=== PATIENT | female | born 1990 | race Caucasian/White ===

== ENCOUNTER 2020-12-27 14:22 | Emergency (ER) | payer MEDICAID, SELFPAY ==
--- NOTE | ~2020-12-27 | US_ITS ---
EXAMINATION: US PELVIC, COMPLETE CLINICAL INFORMATION: Pelvic pain. Missed.. History of ectopic COMPARISON: CT 11/17/2010 TECHNIQUE: Transabdominal and transvaginal imaging was performed. FINDINGS: The uterus is anteverted of normal size and echogenicity measuring 12.5 x 3.9 x 5.1 cm. A regular homogeneous endometrium is identified measuring 0.8-0.9 cm. Nabothian cysts are seen at the cervix. Both ovaries are of normal size and echogenicity. The right measures 2.4 x 1.8 x 1.8 cm for a volume of 4 mL. The left measures 2.4 x 2.2 x 1.7 cm for a volume of 5 mL. There is no pelvic free fluid. US/US pelvic complete IMPRESSION: Unremarkable ultrasound of the female pelvis. Neither an intrauterine or extrauterine is identified. This exam alone does not exclude the possibility of an ectopic and close clinical follow-up is recommended.
--- NOTE | ~2020-12-27 | US_ITS ---
EXAMINATION: US PELVIC, COMPLETE CLINICAL INFORMATION: Pelvic pain. Missed.. History of ectopic COMPARISON: CT 11/17/2010 TECHNIQUE: Transabdominal and transvaginal imaging was performed. FINDINGS: The uterus is anteverted of normal size and echogenicity measuring 12.5 x 3.9 x 5.1 cm. A regular homogeneous endometrium is identified measuring 0.8-0.9 cm. Nabothian cysts are seen at the cervix. Both ovaries are of normal size and echogenicity. The right measures 2.4 x 1.8 x 1.8 cm for a volume of 4 mL. The left measures 2.4 x 2.2 x 1.7 cm for a volume of 5 mL. There is no pelvic free fluid. US/US transvaginal IMPRESSION: Unremarkable ultrasound of the female pelvis. Neither an intrauterine or extrauterine is identified. This exam alone does not exclude the possibility of an ectopic and close clinical follow-up is recommended.
[2020-12-27 14:55] VITALS: BP 137/86; PULSE 82; RESP 18; TEMP 36.6; O2SAT 100; BMI 37.1
[2020-12-27 16:56] LABS: Glucose Urine UA NEG (NEG); Leukocyte Esterase Urine NEG (NEG); Nitrite Urine NEG (NEG); PH 6.5 (5.0-8.0); Urine Blood NEG (NEG); Urine Ketones NEG (NEG); Urine Protein NEG (NEG-TRACE)
[2020-12-27 16:58] LABS: Appearance Urine CLEAR; Color Urine YELLOW
[2020-12-27 17:12] LABS: UPreg QC Valid YES; Urine Pregnancy NEGATIVE (NEGATIVE)
--- NOTE | 2020-12-27 17:24 | ED_ITS ---
HPI - Abdominal Pain General Chief Complaint: Abdominal Pain Stated Complaint: PELVIC PAIN Time Seen by Provider: 12/27/20 16:19 Source: patient Mode of arrival: ambulatory History of Present Illness HPI narrative: 30-year-old female with a history of an ectopic presenting to the ED complaining of lower abdominal/pelvic cramping/pressure x3 days. Admits had IUD removed in August and has been trying to get . Reports last menses was November 18, is 8 days late. Reports associated nausea and vomiting. Denies diarrhea/constipation, fever, vaginal bleeding, vaginal discharge, dysuria/hematuria. Denies symptoms feeling similar to prior ectopic MD elicited complaint: abdominal pain Related Data Allergies Allergy/AdvReac Type Severity Reaction Status Date / Time bee pollen [BEE STINGS] Allergy Severe SWELLING Unverified 07/25/20 15:57 Review of Systems Review of Systems Constitutional: No Weight loss, No Fever, No Chills Gastrointestinal: + Nausea, No Vomiting, No Diarrhea, No Constipation, + Abdominal pain Genitourinary: No irregular bleeding, No Dysuria, No Urinary Frequency, No Hematuria, No Flank Pain Musculoskeletal: No joint pain, No Myalgias, No Joint Swelling Skin: No Skin Lesions, No rash Yes all other systems are reviewed and are negative Physical Exam Vital Signs: Vital Signs: Last Vital Signs Temp 97.9 F 12/27/20 14:55 Pulse 82 12/27/20 14:55 Resp 18 12/27/20 14:55 BP 137/86 12/27/20 14:55 Pulse Ox 100 12/27/20 14:55 Body Mass Index 37.1 Const: General: cooperative, healthy appearing, comfortable and no acute distress Orientation/consciousness: patient oriented x3 Limitations: no limitations HENMT: Head: Yes normal to inspection Ears: hearing grossly normal bilaterally General nose exam: Normal external nose present Face and sinus: Yes normal facial exam Eyes: General: appearance normal, both eyes and all related structures EOM: EOMs intact bilaterally Neck: Neck: Yes normal visual inspection and Yes no lymphadenopathy Resp: Effort & Inspection: normal respiratory effort Cardio: Rate: regular rate GI: Inspection: Yes normal to inspection Palpation (GI): Soft to palpation, Tenderness to palpation present (GI) suprapubicly, no guarding and not rigid : General: Yes no CVA tenderness OB/external & speculum: Deferred OB/ex ternal & speculum exam Back/Spine/Pelvis: Back: no CVA tenderness Skin: Rashes: no rashes Wounds: no wounds Neuro: General: patient oriented x3 Gait exam (Neuro): Normal gait present Extrem: General: Yes normal to inspection Course Course Course Narrative: -UA negative, urine negative -no leukocytosis, labs otherwise unremarkable. Hematologic beta quant 40 US transvaginal IMPRESSION: Unremarkable ultrasound of the female pelvis. Neither an intrauterine or extrauterine is identified. This exam alone does not exclude the possibility of an ectopic and close clinical follow-up is recommended. > results discussed with patient including possibility that this could be normal IUP or ectopic . She is to follow-up in 48 hours for repeat beta quant. Discussed if symptoms persist or worsen, she develops any vaginal bleeding or discharge to return to the ED immediately. She needs to establish care with an OBGYN. She should have repeat ultrasound in 1 week MDM - Abdominal Pain MDM Narrative Medical decision making narrative: 30-year-old female with a history of an ectopic presenting to the ED complaining of lower abdominal/pelvic cramping/pressure x3 days. On exam VSS, NAD/well appearing, abdomen soft with suprapubic tenderness to palpation, no rebound or guarding, no CVAT. Concern for /ectopic vs ovarian pathology/torsion vs ?UTI. Lower concern for appendicitis/diverticulitis or renal stone Plan: Labs, UA, ultrasound, re-evaluate Lab Data Result diagrams: 12/27/20 17:54 12/27/20 17:54 Labs: Lab Results 12/27/20 12/27/20 12/27/20 Range/Units 16:37 17:54 17:54 WBC 10.5 (4.8-10.8) X10*3/uL RBC 4.88 (4.20-5.50) X10*6/uL Hgb 13.6 (12.0-16.0) g/dl Hct 42.3 (37-47) % MCV 86.7 (80-98) fL MCH 27.9 (27.0-33.0) pg MCHC 32.2 (31.0-35.0) g/dl RDW 13.0 (11.0-16.0) % Plt Count 411 H (160-400) X10*3/uL MPV 10.3 (9.4-12.3) fL Immature Gran % (Auto) 0.3 (0.0-0.4) % Neut % (Auto) 61.3 (45-73) % Lymph % (Auto) 28.9 (20-40) % [place] % (Auto) 6.3 (2-11) % Eos % (Auto) 2.5 (0-4) % Baso % (Auto) 0.7 (0-2) % Lymph # (Auto) 3.0 (1.2-4.9) X10*3/uL [place] # (Auto) 0.7 (0.1-1.2) X10*3/uL Eos # (Auto) 0.3 (0.0-0.4) X10*3/uL Baso # (Auto) 0.1 (0.0-0.2) X10*3/uL Abs Immat Gran (auto) 0.03 (0.00-0.03) X10*3/uL Absolute Neuts (auto) 6.4 (2.0-8.3) X10*3/uL Absolute Nucleated RBC 0.000 (0.0-0.012) X10*3/uL Nucleated RBC % (auto) 0.0 (0.0-0.2) /100WBC Hold Blue Top Sodium 139 (135-145) mmol/L Potassium 3.5 (3.3-5.1) mmol/L Chloride 105 (96-108) mmol/L Carbon Dioxide 24 (22-29) mmol/L Anion Gap 14 (12-20) BUN 8 L (9-16) mg/dL Creatinine 0.68 (0.5-1.4) mg/dL Estim Creat Clear Calc 94.4 Estimated GFR > 60 Random Glucose 87 (60-115) mg/dL Calcium 9.2 (8.4-10.2) mg/dL Total Bilirubin 1.3 H (0.0-1.0) mg/dL Direct Bilirubin 0.4 (0.0-0.5) mg/dL AST 18 (5-31) U/L ALT 13 (0-31) U/L Alkaline Phosphatase 67 (39-117) U/L Total Protein 7.2 (6.5-8.0) g/dL Albumin 4.2 (3.5-5.0) g/dL Lipase 10 (8-78) U/L Beta HCG, Quant 40 mIU/mL Urine Color YELLOW Urine Appearance CLEAR Urine pH 6.5 (5.0-8.0) Ur Specific [place] 1.020 (1.005-1.025) Urine Protein NEG (NEG-TRACE) MG/DL Urine Glucose (UA) NEG (NEG) MG/DL Urine Ketones NEG (NEG) MG/DL Urine Blood NEG (NEG) Urine Nitrite NEG (NEG) Ur Leukocyte Esterase NEG (NEG) Urine Test NEGATIVE (NEGATIVE) 12/27/20 Range/Units 17:54 WBC (4.8-10.8) X10*3/uL RBC (4.20-5.50) X10*6/uL Hgb (12.0-16.0) g/dl Hct (37-47) % MCV (80-98) fL MCH (27.0-33.0) pg MCHC (31.0-35.0) g/dl RDW (11.0-16.0) % Plt Count (160-400) X10*3/uL MPV (9.4-12.3) fL Immature Gran % (Auto) (0.0-0.4) % Neut % (Auto) (45-73) % Lymph % (Auto) (20-40) % [place] % (Auto) (2-11) % Eos % (Auto) (0-4) % Baso % (Auto) (0-2) % Lymph # (Auto) (1.2-4.9) X10*3/uL [place] # (Auto) (0.1-1.2) X10*3/uL Eos # (Auto) (0.0-0.4) X10*3/uL Baso # (Auto) (0.0-0.2) X10*3/uL Abs Immat Gran (auto) (0.00-0.03) X10*3/uL Absolute Neuts (auto) (2.0-8.3) X10*3/uL Absolute Nucleated RBC (0.0-0.012) X10*3/uL Nucleated RBC % (auto) (0.0-0.2) /100WBC Hold Blue Top SEE NOTE Sodium (135-145) mmol/L Potassium (3.3-5.1) mmol/L Chloride (96-108) mmol/L Carbon Dioxide (22-29) mmol/L Anion Gap (12-20) BUN (9-16) mg/dL Creatinine (0.5-1.4) mg/dL Estim Creat Clear Calc Estimated GFR Random Glucose (60-115) mg/dL Calcium (8.4-10.2) mg/dL Total Bilirubin (0.0-1.0) mg/dL Direct Bilirubin (0.0-0.5) mg/dL AST (5-31) U/L ALT (0-31) U/L Alkaline Phosphatase (39-117) U/L Total Protein (6.5-8.0) g/dL Albumin (3.5-5.0) g/dL Lipase (8-78) U/L Beta HCG, Quant mIU/mL Urine Color Urine Appearance Urine pH (5.0-8.0) Ur Specific [place] (1.005-1.025) Urine Protein (NEG-TRACE) MG/DL Urine Glucose (UA) (NEG) MG/DL Urine Ketones (NEG) MG/DL Urine Blood (NEG) Urine Nitrite (NEG) Ur Leukocyte Esterase (NEG) Urine Test (NEGATIVE) Discharge Plan Discharge Clinical Impression: Qualifiers: Weeks of gestation: less than 8 weeks Qualified Code(s): Z3A.01 - Less than 8 weeks gestation of Patient Disposition: Home, Self-Care Instructions: Abdominal Pain in (ED) Additional Instructions: Your blood work showed that you are . Your ultrasound did not show an intrauterine or an ectopic , however it is too soon/early, it could be either. It is very important that you follow up in 48 hours to have repeat blood work done. You need to establish care with an OBGYN. you should start taking vitamins. IF AT ALL YOUR PAIN WORSENS, YOU DEVELOPED VAGINAL BLEEDING OR DISCHARGE, PERSISTENT NAUSEA/VOMITING RETURN TO THE ED IMMEDIATELY Referrals: Hattie Augustin MD [Physician] - 2 days [facility] Past Medical History Attestation statement: The following information was validated with the patient. Social History Social History Advance Directives: No Advance Directives Information Provided: Yes
[2020-12-27 18:09] LABS: MANUAL DIFF FLAG NO
[2020-12-27 18:15] LABS: Basophils Absolute Auto 0.1 X10*3/uL (0.0-0.2); Basophils Percent Auto 0.7 % (0-2); Eosinophils Absolute Auto 0.3 X10*3/uL (0.0-0.4); Eosinophils Percent Auto 2.5 % (0-4); Hematocrit 42.3 % (37-47); Hemoglobin 13.6 g/dl (12.0-16.0); Imm Gran Abs Auto 0.03 X10*3/uL (0.00-0.03); Imm Gran Pct Auto 0.3 % (0.0-0.4); Lymphocytes Percent Auto 28.9 % (20-40); Mean Corpuscular HGB Conc 32.2 g/dl (31.0-35.0); Mean Corpuscular Hemoglobin 27.9 pg (27.0-33.0); Mean Corpuscular Volume 86.7 fL (80-98); Mean Platelet Volume 10.3 fL (9.4-12.3); Monocytes Absolute Auto 0.7 X10*3/uL (0.1-1.2); Monocytes Percent Auto 6.3 % (2-11); Neutrophils Absolute Auto 6.4 X10*3/uL (2.0-8.3); Neutrophils Percent Auto 61.3 % (45-73); Platelet Count 411 X10*3/uL (160-400); Red Blood Count 4.88 X10*6/uL (4.20-5.50); White Blood Count 10.5 X10*3/uL (4.8-10.8)
[2020-12-27 18:36] LABS: Alanine Aminotransferase 13 U/L (0-31); Albumin Level 4.2 g/dL (3.5-5.0); Alkaline Phosphatase 67 U/L (39-117); Anion Gap 14 (12-20); Aspartate Amino Transferase 18 U/L (5-31); Bilirubin Direct 0.4 mg/dL (0.0-0.5); Bilirubin Total 1.3 mg/dL (0.0-1.0); Blood Urea Nitrogen 8 mg/dL (9-16); Calcium 9.2 mg/dL (8.4-10.2); Carbon Dioxide 24 mmol/L (22-29); Chloride 105 mmol/L (96-108); Creatinine Clr Calc Pharmacy 94.4; Estimated Glomerular Filt Rate > 60; Glucose Random 87 mg/dL (60-115); Lipase 10 U/L (8-78); Potassium 3.5 mmol/L (3.3-5.1); Sodium 139 mmol/L (135-145); Total Protein 7.2 g/dL (6.5-8.0)
[2020-12-27 18:41] LABS: HCG Quantitative 40 mIU/mL
[2020-12-27 19:24] VITALS: BP 144/100; PULSE 79; RESP 20; O2SAT 98
== END 2020-12-27 19:31 | disposition home or self-care (01) ==
PROVIDERS: Physician Assistant; Emergency Provider Internal Medicine
DX: O26.91 Pregnancy related conditions, unspecified, first trimester (principal); R10.2 Pelvic and perineal pain; Z3A.00 Weeks of gestation of pregnancy not specified
CPT/HCPCS: 36415; 76830; 76856; 80048; 80076; 81003; 81025; 83690; 84702; 85025; 99284

== ENCOUNTER 2020-12-31 16:14 | Outpatient (REF) | payer MEDICAID, SELFPAY ==
[2020-12-31 17:09] LABS: HCG Quantitative 103 mIU/mL
== END 2020-12-31 16:15 | disposition home or self-care (01) ==
LOC: HO.LAB 16:14
PROVIDERS: Visit Provider Obstetrics & Gynecology
DX: Z34.90 Encounter for supervision of normal pregnancy, unspecified, unspecified trimester (principal)
CPT/HCPCS: 36415; 84702

== ENCOUNTER 2021-01-01 09:59 | Outpatient (REF) | payer MEDICAID, SELFPAY ==
[2021-01-02 17:01] LABS: C. trachomatis RNA TMA NOT DETECTED (NOT DETECTED); N. gonorrhoeae RNA TMA NOT DETECTED (NOT DETECTED)
== END 2021-01-01 10:00 | disposition home or self-care (01) ==
LOC: HO.LAB 09:59
PROVIDERS: Visit Provider Obstetrics & Gynecology
DX: Z34.80 Encounter for supervision of other normal pregnancy, unspecified trimester (principal); Z3A.00 Weeks of gestation of pregnancy not specified; Z91.030 Bee allergy status; Z87.891 Personal history of nicotine dependence
CPT/HCPCS: 36415; 87491; 87591

== ENCOUNTER 2021-01-02 12:24 | Outpatient (REF) | payer SELFPAY ==
[2021-01-02 14:21] LABS: HCG Quantitative 131 mIU/mL
[2021-01-03 14:02] LABS: C. trachomatis RNA TMA NOT DETECTED (NOT DETECTED); N. gonorrhoeae RNA TMA NOT DETECTED (NOT DETECTED)
== END 2021-01-02 12:25 | disposition home or self-care (01) ==
LOC: HO.LAB 12:24
PROVIDERS: Visit Provider Obstetrics & Gynecology
DX: Z34.80 Encounter for supervision of other normal pregnancy, unspecified trimester (principal); Z3A.00 Weeks of gestation of pregnancy not specified; Z91.030 Bee allergy status
CPT/HCPCS: 36415; 84702; 86900; 86901; 87491; 87591; 99212

== ENCOUNTER 2021-01-04 10:01 | Outpatient (REF) | payer MEDICAID, SELFPAY ==
[2021-01-04 11:01] LABS: HCG Quantitative 122 mIU/mL
[2021-01-06 20:16] LABS: C. trachomatis RNA TMA NOT DETECTED (NOT DETECTED); N. gonorrhoeae RNA TMA NOT DETECTED (NOT DETECTED)
== END 2021-01-04 10:02 | disposition home or self-care (01) ==
LOC: HO.LAB 10:01
PROVIDERS: Visit Provider Obstetrics & Gynecology
DX: Z34.90 Encounter for supervision of normal pregnancy, unspecified, unspecified trimester (principal)
CPT/HCPCS: 36415; 84702; 87491; 87591

== ENCOUNTER 2021-01-06 06:26 | Outpatient (REF) | payer MEDICAID, SELFPAY ==
[2021-01-06 08:20] LABS: HCG Quantitative 120 mIU/mL
[2021-01-07 11:41] LABS: C. trachomatis RNA TMA NOT DETECTED (NOT DETECTED); N. gonorrhoeae RNA TMA NOT DETECTED (NOT DETECTED)
== END 2021-01-06 06:27 | disposition home or self-care (01) ==
LOC: HO.LAB 06:26
PROVIDERS: Visit Provider Obstetrics & Gynecology
DX: R89.1 Abnormal level of hormones in specimens from other organs, systems and tissues (principal)
CPT/HCPCS: 36415; 84702; 87491; 87591; 99212

== ENCOUNTER 2021-01-07 14:46 | Emergency (ER) | payer OTHER, SELFPAY ==
[2021-01-07 14:50] VITALS: BP 143/99; PULSE 102; RESP 16; TEMP 36.8; O2SAT 98; BMI 39.2
--- NOTE | 2021-01-07 15:16 | ED_ITS ---
HPI - General Chief complaint: Vaginal Bleeding Stated complaint: vag bleed Time Seen by Provider: 01/07/21 15:03 Source: patient Mode of arrival: ambulatory History of Present Illness HPI Narrative: 30-year-old female with a history of an ectopic presenting to the ED complaining of pinkish spotting x this morning with lower abdominal cramping. LMP 11/15/2020. Has been seeing Dr. Cm who has been monitoring her hCG, as her levels have been decreasing consistent with likely early SAB vs early ectopic or unlikely normal IUP. Denies hemorrhage or clots. Denies N/V, diarrhea/constipation, fever, vaginal discharge, dysuria/hematuria. Complaint: abdominal pain and vaginal bleeding Related Data Home Medications Medication Instructions Recorded Confirmed No Known Home Meds 01/01/21 01/01/21 Allergies Allergy/AdvReac Type Severity Reaction Status Date / Time bee pollen [BEE STINGS] Allergy Severe SWELLING Verified 01/06/21 14:52 Review of Systems Review of Systems: Constitutional: No Fever, No Chills, No Night Sweats, No Fatigue, No Malaise Gastrointestinal: No Nausea, No Vomiting, No Diarrhea, +Abdominal cramping Genitourinary: + irregular spotting, No Dysuria, No Urinary Frequency, No Hematuria, No Flank Pain Musculoskeletal: No joint pain, No Myalgias Skin: No Skin Lesions, No rash Yes all other systems are reviewed and are negative [facility] Past Medical History Attestation statement: The following information was validated with the patient. Medical History Ectopic Surgical History History of Social History Social History Alcohol intake: never Smoking Status: Former smoker Advance Directives: No Advance Directives Information Provided: No Sexual orientation: Straight/Heterosexual Gender identity: female Physical Exam Vital Signs: Vital Signs: Last Vital Signs Temp 98.2 F 01/07/21 14:50 Pulse 102 H 01/07/21 14:50 Resp 16 01/07/21 14:50 BP 143/99 H 01/07/21 14:50 Pulse Ox 98 01/07/21 14:50 Body Mass Index 39.2 Const: General: cooperative, healthy appearing, comfortable, no acute distress and well developed Orientation/consciousness: patient oriented x3 Limitations: no limitations HENMT: Head: Yes normal to inspection Ears: hearing grossly normal bilaterally General nose exam: Normal external nose present Face and sinus: Yes normal facial exam Eyes: General: appearance normal, both eyes and all related structures EOM: EOMs intact bilaterally Neck: Neck: Yes normal visual inspection and Yes no meningeal signs Resp: Effort & Inspection: normal respiratory effort Cardio: Rate: regular rate GI: Inspection: Yes normal to inspection Palpation (GI): Soft to palpation, Tenderness to palpation present (GI) suprapubicly, no guarding and not rigid : Other: Thin yellowish vaginal discharge noted on speculum exam. No adnexal or CMT tenderness. No active bleeding or hemorrhage. General: Yes no CVA tenderness Speculum Exam - Vagina: abnormal vaginal discharge yellow Bimanual exam- vagina & uterus: normal bimanual exam and no cervical motion tenderness Bimanual Exam- Adnexa, other: normal adnexae, no masses and no tenderness Back/Spine/Pelvis: Back: no CVA tenderness Skin: Rashes: no rashes Wounds: no wounds Neuro: General: patient oriented x3 and no meningeal signs Gait exam (Neuro): Normal gait present Extrem: General: Yes normal to inspection Course Course Course Narrative: -STI testing sent during pelvic exam due to noted vaginal discharge > of note negative CT/NG testing documented from yesterday. Will hold on prophylactic treatment in the ED today until cultures result -mild leukocytosis 11.0 -beta quant 127. UA negative. These results were discussed with patient. She has follow-up with Dr. Toi ERNANDEZ tomorrow morning for repeat beta quant in the a.m. and office visit at 3:00 p.m. Discussed importance of keeping this appointment. Worrisome signs and symptoms including continued or worsening of pain, bright red bleeding, clots, fever to return to the ED immediately. She verbalized understanding feel safe for discharge home MDM - OB/Uterine Contractions MDM Narrative Medical decision making narrative: 30-year-old female with a history of an ectopic presenting to the ED complaining of pinkish spotting x this morning with lower abdominal cramping. On exam mildly tachycardic, NAD/nontoxic, abdomen soft with mild suprapubic tenderness to palpation, no rebound or guarding. On pelvic exam yellowish vaginal discharge noted. No CMT or adnexal tenderness. No active hemorrhaging. Concern for early spontaneous vs ectopic or IUP Plan: Labs, UA Case discussed with Dr. Cedeno who is in agreement with plan. Utility of a pelvic ultrasound not deemed useful at this time due to low beta quant. No active hemorrhage appreciated on speculum exam. Will have patient follow-up in for repeat beta-hCG tomorrow as already scheduled Medical Records Attestation: I reviewed the patient's medical records. Lab Data Attestation: I reviewed the patient's lab results. Result diagrams: 01/07/21 15:25 01/07/21 15:25 Labs: Lab Results 01/07/21 01/07/21 01/07/21 Range/Units 15:25 15:25 15:25 WBC 11.0 H (4.8-10.8) X10*3/uL RBC 4.93 (4.20-5.50) X10*6/uL Hgb 13.7 (12.0-16.0) g/dl Hct 43.5 (37-47) % MCV 88.2 (80-98) fL MCH 27.8 (27.0-33.0) pg MCHC 31.5 (31.0-35.0) g/dl RDW 13.3 (11.0-16.0) % Plt Count 384 (160-400) X10*3/uL MPV 9.7 (9.4-12.3) fL Immature Gran % (Auto) 0.3 (0.0-0.4) % Neut % (Auto) 57.5 (45-73) % Lymph % (Auto) 32.8 (20-40) % [place] % (Auto) 6.0 (2-11) % Eos % (Auto) 2.7 (0-4) % Baso % (Auto) 0.7 (0-2) % Lymph # (Auto) 3.6 (1.2-4.9) X10*3/uL [place] # (Auto) 0.7 (0.1-1.2) X10*3/uL Eos # (Auto) 0.3 (0.0-0.4) X10*3/uL Baso # (Auto) 0.1 (0.0-0.2) X10*3/uL Abs Immat Gran (auto) 0.03 (0.00-0.03) X10*3/uL Absolute Neuts (auto) 6.3 (2.0-8.3) X10*3/uL Absolute Nucleated RBC 0.000 (0.0-0.012) X10*3/uL Nucleated RBC % (auto) 0.0 (0.0-0.2) /100WBC Hold Blue Top SEE NOTE Sodium 137 (135-145) mmol/L Potassium 4.4 D (3.3-5.1) mmol/L Chloride 105 (96-108) mmol/L Carbon Dioxide 25 (22-29) mmol/L Anion Gap 11 L (12-20) BUN 13 D (9-16) mg/dL Creatinine 0.75 (0.5-1.4) mg/dL Estim Creat Clear Calc 88.4 Estimated GFR > 60 Random Glucose 81 (60-115) mg/dL Calcium 9.0 (8.4-10.2) mg/dL Beta HCG, Quant 127 mIU/mL Urine Color Urine Appearance Urine pH (5.0-8.0) Ur Specific [place] (1.005-1.025) Urine Protein (NEG-TRACE) MG/DL Urine Glucose (UA) (NEG) MG/DL Urine Ketones (NEG) MG/DL Urine Blood (NEG) Urine Nitrite (NEG) Ur Leukocyte Esterase (NEG) 01/07/21 Range/Units 16:03 WBC (4.8-10.8) X10*3/uL RBC (4.20-5.50) X10*6/uL Hgb (12.0-16.0) g/dl Hct (37-47) % MCV (80-98) fL MCH (27.0-33.0) pg MCHC (31.0-35.0) g/dl RDW (11.0-16.0) % Plt Count (160-400) X10*3/uL MPV (9.4-12.3) fL Immature Gran % (Auto) (0.0-0.4) % Neut % (Auto) (45-73) % Lymph % (Auto) (20-40) % [place] % (Auto) (2-11) % Eos % (Auto) (0-4) % Baso % (Auto) (0-2) % Lymph # (Auto) (1.2-4.9) X10*3/uL [place] # (Auto) (0.1-1.2) X10*3/uL Eos # (Auto) (0.0-0.4) X10*3/uL Baso # (Auto) (0.0-0.2) X10*3/uL Abs Immat Gran (auto) (0.00-0.03) X10*3/uL Absolute Neuts (auto) (2.0-8.3) X10*3/uL Absolute Nucleated RBC (0.0-0.012) X10*3/uL Nucleated RBC % (auto) (0.0-0.2) /100WBC Hold Blue Top Sodium (135-145) mmol/L Potassium (3.3-5.1) mmol/L Chloride (96-108) mmol/L Carbon Dioxide (22-29) mmol/L Anion Gap (12-20) BUN (9-16) mg/dL Creatinine (0.5-1.4) mg/dL Estim Creat Clear Calc Estimated GFR Random Glucose (60-115) mg/dL Calcium (8.4-10.2) mg/dL Beta HCG, Quant mIU/mL Urine Color YELLOW Urine Appearance CLEAR Urine pH 6.5 (5.0-8.0) Ur Specific [place] 1.025 (1.005-1.025) Urine Protein NEG (NEG-TRACE) MG/DL Urine Glucose (UA) NEG (NEG) MG/DL Urine Ketones NEG (NEG) MG/DL Urine Blood NEG (NEG) Urine Nitrite NEG (NEG) Ur Leukocyte Esterase NEG (NEG) Discharge Plan Discharge Clinical Impression: Early stage of Patient Disposition: Home, Self-Care Instructions: Early Labor Signs (ED) Additional Instructions: Follow-up tomorrow for repeat blood work and for your OBGYN appointment as already scheduled If you develop constant worsening abdominal pain, persistent or worsening vaginal bleeding/discharge, lightheadedness/dizziness, or fever return to the ED immediately. Prescriptions: No Action No Known Home Meds RF: 0 Referrals: Saurabh Cm MD [Physician] - 1 day
[2021-01-07 15:29] LABS: MANUAL DIFF FLAG NO
[2021-01-07 15:30] LABS: Basophils Absolute Auto 0.1 X10*3/uL (0.0-0.2); Basophils Percent Auto 0.7 % (0-2); Eosinophils Absolute Auto 0.3 X10*3/uL (0.0-0.4); Eosinophils Percent Auto 2.7 % (0-4); Hematocrit 43.5 % (37-47); Hemoglobin 13.7 g/dl (12.0-16.0); Imm Gran Abs Auto 0.03 X10*3/uL (0.00-0.03); Imm Gran Pct Auto 0.3 % (0.0-0.4); Lymphocytes Absolute Auto 3.6 X10*3/uL (1.2-4.9); Lymphocytes Percent Auto 32.8 % (20-40); Mean Corpuscular HGB Conc 31.5 g/dl (31.0-35.0); Mean Corpuscular Hemoglobin 27.8 pg (27.0-33.0); Mean Corpuscular Volume 88.2 fL (80-98); Mean Platelet Volume 9.7 fL (9.4-12.3); Monocytes Absolute Auto 0.7 X10*3/uL (0.1-1.2); Neutrophils Absolute Auto 6.3 X10*3/uL (2.0-8.3); Neutrophils Percent Auto 57.5 % (45-73); Platelet Count 384 X10*3/uL (160-400); Red Blood Count 4.93 X10*6/uL (4.20-5.50); Red Cell Distribution Width 13.3 % (11.0-16.0)
[2021-01-07 16:07] LABS: HCG Quantitative 127 mIU/mL
[2021-01-07 16:08] LABS: Anion Gap 11 (12-20); Blood Urea Nitrogen 13 mg/dL (9-16); Carbon Dioxide 25 mmol/L (22-29); Chloride 105 mmol/L (96-108); Creatinine Clr Calc Pharmacy 88.4; Estimated Glomerular Filt Rate > 60; Glucose Random 81 mg/dL (60-115); Potassium 4.4 mmol/L (3.3-5.1); Sodium 137 mmol/L (135-145)
[2021-01-07 16:15] LABS: Glucose Urine UA NEG (NEG); Leukocyte Esterase Urine NEG (NEG); Nitrite Urine NEG (NEG); PH 6.5 (5.0-8.0); Specific Gravity - Urine 1.025 (1.005-1.025); Urine Blood NEG (NEG); Urine Ketones NEG (NEG); Urine Protein NEG (NEG-TRACE)
[2021-01-07 16:18] LABS: Appearance Urine CLEAR; Color Urine YELLOW
--- NOTE | 2021-01-07 17:14 | PC.NURSE ---
CLEARED FOR DC BY PROVIDER.
[2021-01-08 08:50] LABS: CT PCR NOT DETECTED (Not Detect.); NG PCR NOT DETECTED (Not Detect.)
[2021-01-08 09:10] LABS: BV Int Neg Control Negative (Negative); BV Int Pos Control Positive (Positive)
== END 2021-01-07 17:14 | disposition home or self-care (01) ==
PROVIDERS: Physician Assistant; Emergency Provider Emergency Medicine
DX: O20.9 Hemorrhage in early pregnancy, unspecified (principal); Z3A.00 Weeks of gestation of pregnancy not specified; Z87.891 Personal history of nicotine dependence
CPT/HCPCS: 36415; 80048; 81003; 84702; 85025; 87480; 87491; 87510; 87591; 87660; 99283

== ENCOUNTER 2021-01-08 06:31 | Outpatient (REF) | payer OTHER, SELFPAY ==
[2021-01-08 07:41] LABS: HCG Quantitative 127 mIU/mL
== END 2021-01-08 06:32 | disposition home or self-care (01) ==
LOC: HO.LAB 06:31
PROVIDERS: Visit Provider Obstetrics & Gynecology
DX: Z34.90 Encounter for supervision of normal pregnancy, unspecified, unspecified trimester (principal)
CPT/HCPCS: 84702; 87491; 87591

== ENCOUNTER 2021-01-08 12:24 | Outpatient (REF) | payer OTHER, SELFPAY ==
--- NOTE | ~2021-01-08 | US_ITS ---
EXAMINATION: OB ULTRASOUND CLINICAL INFORMATION: Encounter for supervision of normal . COMPARISON: None TECHNIQUE: Transabdominal and transvaginal OB ultrasound. Transvaginal exam was performed for better visualization of the uterus and ovaries. FINDINGS: The uterus is anteverted and retroflexed measures 11 x 4.3 x 5.2 cm in dimension. Endometrial thickness measures 1.1 cm. No intrauterine is seen. No focal uterine lesion is seen. The cervix is normal appearing. The right ovary is normal-appearing and measures 2.9 x 2.1 x 1.9 cm. The left ovary measures 2.8 x 1.7 x 2 cm. There is a solid hyperechoic avascular left adnexal mass that measures 1.5 x 1.4 x 1.5 cm. Appearance is questionable for a left adnexal ectopic . There is no fluid in the pelvis. US/US OB transvaginal IMPRESSION: No intrauterine seen. 1.5 x 1.4 x 1.5 cm solid hyperechoic left adnexal soft tissue mass questionable for an an ectopic . Findings were communicated by the lead neurodiagnostic technologist at the completion of the exam. Report will be called by the [place] work flow automotive internet sales manager Margoth William.
--- NOTE | ~2021-01-08 | US_ITS ---
EXAMINATION: OB ULTRASOUND CLINICAL INFORMATION: Encounter for supervision of normal . COMPARISON: None TECHNIQUE: Transabdominal and transvaginal OB ultrasound. Transvaginal exam was performed for better visualization of the uterus and ovaries. FINDINGS: The uterus is anteverted and retroflexed measures 11 x 4.3 x 5.2 cm in dimension. Endometrial thickness measures 1.1 cm. No intrauterine is seen. No focal uterine lesion is seen. The cervix is normal appearing. The right ovary is normal-appearing and measures 2.9 x 2.1 x 1.9 cm. The left ovary measures 2.8 x 1.7 x 2 cm. There is a solid hyperechoic avascular left adnexal mass that measures 1.5 x 1.4 x 1.5 cm. Appearance is questionable for a left adnexal ectopic . There is no fluid in the pelvis. US/US OB limited IMPRESSION: No intrauterine seen. 1.5 x 1.4 x 1.5 cm solid hyperechoic left adnexal soft tissue mass questionable for an an ectopic . Findings were communicated by the radiographic technologist at the completion of the exam. Report will be called by the [place] work flow warehouse shift supervisor Margoth William.
[2021-01-08 14:49] LABS: Hemoglobin 13.3 g/dl (12.0-16.0); Mean Corpuscular HGB Conc 31.7 g/dl (31.0-35.0); Mean Corpuscular Hemoglobin 27.9 pg (27.0-33.0); Mean Corpuscular Volume 88.2 fL (80-98); Mean Platelet Volume 9.9 fL (9.4-12.3); Platelet Count 393 X10*3/uL (160-400); Red Blood Count 4.76 X10*6/uL (4.20-5.50); Red Cell Distribution Width 13.2 % (11.0-16.0); White Blood Count 10.8 X10*3/uL (4.8-10.8)
[2021-01-08 15:20] LABS: Alanine Aminotransferase 25 U/L (0-31); Aspartate Amino Transferase 22 U/L (5-31); Estimated Glomerular Filt Rate > 60
[2021-01-10 12:42] LABS: C. trachomatis RNA TMA NOT DETECTED (NOT DETECTED); N. gonorrhoeae RNA TMA NOT DETECTED (NOT DETECTED)
== END 2021-01-08 12:25 | disposition home or self-care (01) ==
LOC: HO.LAB 12:24
PROVIDERS: Visit Provider Obstetrics & Gynecology
DX: O00.90 Unspecified ectopic pregnancy without intrauterine pregnancy (principal)
CPT/HCPCS: 36415; 76815; 76817; 82565; 84450; 84460; 85027; 87491; 87591; 99212

== ENCOUNTER 2021-01-08 18:32 | Emergency (ER) | payer OTHER, SELFPAY ==
[2021-01-08 19:48] VITALS: BP 139/92; PULSE 81; RESP 16; TEMP 36.6; O2SAT 99; BMI 39.2
[2021-01-08 20:10] LABS: MANUAL DIFF FLAG NO
[2021-01-08 20:15] VITALS: BP 134/95; PULSE 78; RESP 18; O2SAT 97
[2021-01-08 20:16] VITALS: TEMP 36.7
[2021-01-08 20:22] LABS: Basophils Absolute Auto 0.1 X10*3/uL (0.0-0.2); Basophils Percent Auto 0.7 % (0-2); Eosinophils Absolute Auto 0.3 X10*3/uL (0.0-0.4); Eosinophils Percent Auto 2.4 % (0-4); Hematocrit 42.6 % (37-47); Imm Gran Abs Auto 0.03 X10*3/uL (0.00-0.03); Imm Gran Pct Auto 0.3 % (0.0-0.4); Mean Corpuscular HGB Conc 32.9 g/dl (31.0-35.0); Mean Corpuscular Hemoglobin 28.5 pg (27.0-33.0); Mean Corpuscular Volume 86.6 fL (80-98); Monocytes Absolute Auto 0.7 X10*3/uL (0.1-1.2); Monocytes Percent Auto 5.8 % (2-11); Neutrophils Absolute Auto 6.6 X10*3/uL (2.0-8.3); Neutrophils Percent Auto 56.8 % (45-73); Platelet Count 390 X10*3/uL (160-400); Red Blood Count 4.92 X10*6/uL (4.20-5.50); Red Cell Distribution Width 13.2 % (11.0-16.0); White Blood Count 11.6 X10*3/uL (4.8-10.8)
[2021-01-08 20:43] LABS: Alanine Aminotransferase 26 U/L (0-31); Albumin Level 4.3 g/dL (3.5-5.0); Alkaline Phosphatase 69 U/L (39-117); Anion Gap 13 (12-20); Aspartate Amino Transferase 22 U/L (5-31); Bilirubin Total 1.3 mg/dL (0.0-1.0); Blood Urea Nitrogen 10 mg/dL (9-16); Calcium 9.2 mg/dL (8.4-10.2); Carbon Dioxide 23 mmol/L (22-29); Chloride 103 mmol/L (96-108); Creatinine Clr Calc Pharmacy 97.5; Estimated Glomerular Filt Rate > 60; Glucose Random 83 mg/dL (60-115); Potassium 3.8 mmol/L (3.3-5.1); Sodium 135 mmol/L (135-145); Total Protein 7.4 g/dL (6.5-8.0)
[2021-01-08 20:49] LABS: HCG Quantitative 126 mIU/mL
[2021-01-08 21:36] VITALS: BP 148/95; PULSE 84; RESP 18; TEMP 36.8; O2SAT 100
[2021-01-08] MEDS: Acetaminophen 325 MG TABLET 650 MG PO (21:40)
[2021-01-08] MEDS: metHOTREXate sodium 125 MG/5 ML SYRINGE 86 MG IM (21:45)
[2021-01-08 21:57] LABS: Glucose Urine UA NEG (NEG); Leukocyte Esterase Urine NEG (NEG); Nitrite Urine NEG (NEG); Specific Gravity - Urine 1.025 (1.005-1.025); Urine Blood 3+ (NEG); Urine Ketones NEG (NEG); Urine Protein 1+ MG/DL (NEG-TRACE)
[2021-01-08 21:58] LABS: Appearance Urine CLOUDY; Color Urine YELLOW
[2021-01-08 22:06] LABS: UPreg QC Valid YES; Urine Pregnancy POSITIVE (NEGATIVE)
[2021-01-08 22:09] LABS: Bacteria Urine 2+ /LPF; Squamous Epithelial Cell Urine 1+ /LPF; UACC CULT YES
[2021-01-08 22:26] VITALS: BP 140/96; PULSE 72; RESP 18; TEMP 36.5; O2SAT 98
--- NOTE | 2021-01-08 22:44 | ED.PREGNANCY ---
HPI - General Chief complaint: OB Stated complaint: medication administration Time Seen by Provider: 01/08/21 20:51 Source: patient Mode of arrival: ambulatory Limitations: no limitations History of Present Illness HPI Narrative: 30-year-old female presents with known ectopic from Dr. Becerra the office. Complaint: abdominal pain Pain Consistency: constant Location: pelvis Severity: severe Quality: Cramping Vaginal discharge: none Vaginal bleeding: none Patient : Yes OB History - Current : other (Ectopic ) care: followed by OB Related Data Home Medications Medication Instructions Recorded Confirmed No Known Home Meds 01/01/21 01/01/21 Allergies Allergy/AdvReac Type Severity Reaction Status Date / Time bee pollen [BEE STINGS] Allergy Severe SWELLING Verified 01/08/21 19:56 Review of Systems Review of Systems: Constitutional: No Fever, No Chills, positive headache ENT/Mouth: No Ear Pain, No Hoarseness, No sore throat Eyes: No Eye Pain, No Swelling, No Redness, No Foreign Body Cardiovascular: No Chest Pain, No SOB Respiratory: No Cough, No Dyspnea Gastrointestinal: No Nausea, No Vomiting, No Diarrhea, No abdominal Pain Genitourinary: Positive ectopic , No Dysuria, No Hematuria Musculoskeletal: positive joint pain, No Myalgias, No Joint Swelling Skin: No Skin lacerations, No rash Neuro: No Weakness, No Numbness, No Paresthesias, No Loss of Consciousness, No Dizziness, No Headache Psych: No Anxiety/Panic, No Depression Heme/Lymph: no easy bruising, no Lymphadenopathy Endocrine: No Polyuria, No Polydipsia Yes all other systems are reviewed and are negative [facility] Past Medical History Attestation statement: The following information was validated with the patient. Source: old records reviewed Medical History Ectopic Surgical History History of Social History Social History Alcohol intake: never Smoking Status: Never smoker Use of substances other than those prescribed or required for medical reasons: No Advance Directives: No Advance Directives Information Provided: No Sexual orientation: Straight/Heterosexual Gender identity: female Physical Exam Vital Signs: Vital Signs: Last Vital Signs Temp 97.7 F 01/08/21 22:26 Pulse 72 01/08/21 22:26 Resp 18 01/08/21 22:26 BP 140/96 H 01/08/21 22:26 Pulse Ox 98 01/08/21 22:26 Body Mass Index 39.2 Appearance: Alert. Oriented X3. No acute distress. Eyes: Pupils equal, round and reactive to light. ENT: Pharynx normal. Neck: Normal inspection. Neck supple. CVS: Normal heart rate and rhythm. Pulses normal. Respiratory: No respiratory distress. Breath sounds normal. Abdomen: Soft and nontender. Skin: Skin warm and dry. Normal skin color. Normal skin turgor. Extremities: No lower extremity edema. Neuro: No motor deficit. No sensory deficit. Course Course Course Narrative: 30-year-old female presents from Dr Becerra office with known ectopic . She presents for methotrexate injection. Consent reviewed by this SERVICE GREETER. Discussion with patient regarding plan as well as Dr Cm via [place] text. Will administer 86 mg of methotrexate IM. Patient will follow-up with Ob as scheduled. 10:45 p.m. no adverse reactions from methotrexate. Patient to be discharged home and she verbalizes understanding of and agrees to plan of care. MDM - OB/Uterine Contractions MDM Narrative Medical decision making narrative: Ectopic Medical Records Attestation: I reviewed the patient's medical records. Lab Data Attestation: I reviewed the patient's lab results. Result diagrams: 01/08/21 19:59 01/08/21 19:59 Labs: Lab Results 01/08/21 01/08/21 01/08/21 Range/Units 19:59 19:59 21:39 WBC 11.6 H (4.8-10.8) X10*3/uL RBC 4.92 (4.20-5.50) X10*6/uL Hgb 14.0 (12.0-16.0) g/dl Hct 42.6 (37-47) % MCV 86.6 (80-98) fL MCH 28.5 (27.0-33.0) pg MCHC 32.9 (31.0-35.0) g/dl RDW 13.2 (11.0-16.0) % Plt Count 390 (160-400) X10*3/uL MPV 10.0 (9.4-12.3) fL Immature Gran % (Auto) 0.3 (0.0-0.4) % Neut % (Auto) 56.8 (45-73) % Lymph % (Auto) 34.0 (20-40) % [place] % (Auto) 5.8 (2-11) % Eos % (Auto) 2.4 (0-4) % Baso % (Auto) 0.7 (0-2) % Lymph # (Auto) 4.0 (1.2-4.9) X10*3/uL [place] # (Auto) 0.7 (0.1-1.2) X10*3/uL Eos # (Auto) 0.3 (0.0-0.4) X10*3/uL Baso # (Auto) 0.1 (0.0-0.2) X10*3/uL Abs Immat Gran (auto) 0.03 (0.00-0.03) X10*3/uL Absolute Neuts (auto) 6.6 (2.0-8.3) X10*3/uL Absolute Nucleated RBC 0.000 (0.0-0.012) X10*3/uL Nucleated RBC % (auto) 0.0 (0.0-0.2) /100WBC Sodium 135 (135-145) mmol/L Potassium 3.8 (3.3-5.1) mmol/L Chloride 103 (96-108) mmol/L Carbon Dioxide 23 (22-29) mmol/L Anion Gap 13 (12-20) BUN 10 (9-16) mg/dL Creatinine 0.68 (0.5-1.4) mg/dL Estim Creat Clear Calc 97.5 Estimated GFR > 60 Random Glucose 83 (60-115) mg/dL Calcium 9.2 (8.4-10.2) mg/dL Total Bilirubin 1.3 H (0.0-1.0) mg/dL AST 22 (5-31) U/L ALT 26 (0-31) U/L Alkaline Phosphatase 69 (39-117) U/L Total Protein 7.4 (6.5-8.0) g/dL Albumin 4.3 (3.5-5.0) g/dL Beta HCG, Quant 126 mIU/mL Urine Color YELLOW Urine Appearance CLOUDY Urine pH 6.0 (5.0-8.0) Ur Specific Combs 1.025 (1.005-1.025) Urine Protein 1+ H (NEG-TRACE) MG/DL Urine Glucose (UA) NEG (NEG) MG/DL Urine Ketones NEG (NEG) MG/DL Urine Blood 3+ H (NEG) Urine Nitrite NEG (NEG) Ur Leukocyte Esterase NEG (NEG) Urine RBC 1-4 (0) /HPF Urine WBC 5-9 H (0-4) /HPF Ur Squamous Epith Cells 1+ /LPF Urine Bacteria 2+ /LPF Urine Test (NEGATIVE) 01/08/21 Range/Units 21:39 WBC (4.8-10.8) X10*3/uL RBC (4.20-5.50) X10*6/uL Hgb (12.0-16.0) g/dl Hct (37-47) % MCV (80-98) fL MCH (27.0-33.0) pg MCHC (31.0-35.0) g/dl RDW (11.0-16.0) % Plt Count (160-400) X10*3/uL MPV (9.4-12.3) fL Immature Gran % (Auto) (0.0-0.4) % Neut % (Auto) (45-73) % Lymph % (Auto) (20-40) % [place] % (Auto) (2-11) % Eos % (Auto) (0-4) % Baso % (Auto) (0-2) % Lymph # (Auto) (1.2-4.9) X10*3/uL [place] # (Auto) (0.1-1.2) X10*3/uL Eos # (Auto) (0.0-0.4) X10*3/uL Baso # (Auto) (0.0-0.2) X10*3/uL Abs Immat Gran (auto) (0.00-0.03) X10*3/uL Absolute Neuts (auto) (2.0-8.3) X10*3/uL Absolute Nucleated RBC (0.0-0.012) X10*3/uL Nucleated RBC % (auto) (0.0-0.2) /100WBC Sodium (135-145) mmol/L Potassium (3.3-5.1) mmol/L Chloride (96-108) mmol/L Carbon Dioxide (22-29) mmol/L Anion Gap (12-20) BUN (9-16) mg/dL Creatinine (0.5-1.4) mg/dL Estim Creat Clear Calc Estimated GFR Random Glucose (60-115) mg/dL Calcium (8.4-10.2) mg/dL Total Bilirubin (0.0-1.0) mg/dL AST (5-31) U/L ALT (0-31) U/L Alkaline Phosphatase (39-117) U/L Total Protein (6.5-8.0) g/dL Albumin (3.5-5.0) g/dL Beta HCG, Quant mIU/mL Urine Color Urine Appearance Urine pH (5.0-8.0) Ur Specific Combs (1.005-1.025) Urine Protein (NEG-TRACE) MG/DL Urine Glucose (UA) (NEG) MG/DL Urine Ketones (NEG) MG/DL Urine Blood (NEG) Urine Nitrite (NEG) Ur Leukocyte Esterase (NEG) Urine RBC (0) /HPF Urine WBC (0-4) /HPF Ur Squamous Epith Cells /LPF Urine Bacteria /LPF Urine Test POSITIVE H (NEGATIVE) Discharge Plan Discharge Clinical Impression: Ectopic Qualifiers: Location of ectopic : tubal Intrauterine status: without intrauterine Laterality: left Qualified Code(s): O00.102 - Left tubal without intrauterine Patient Disposition: Home, Self-Care Instructions: Methotrexate (By injection), Ectopic (DC) Additional Instructions: You were evaluated for ectopic . You received methotrexate in the emergency department. Please follow-up with Dr Cm as scheduled. Thank you for choosing this emergency department for evaluation. Please follow-up with primary care physician as needed. Return to the emergency department for any new, concerning, or worsening symptoms. Prescriptions: No Action No Known Home Meds RF: 0 Interventions: ED Discharge Assessment Last Done: 01/08/21 22:56 Discharge Date/Time: 01/08/21 22:57
== END 2021-01-08 22:57 | disposition home or self-care (01) ==
PROVIDERS: Emergency Provider Emergency Medicine
DX: O00.102 Left tubal pregnancy without intrauterine pregnancy (principal)
CPT/HCPCS: 36415; 80053; 81001; 81025; 84702; 85025; 87086; 96372; 99284; J9250

== ENCOUNTER 2021-01-11 09:15 | Outpatient (REF) | payer OTHER, SELFPAY ==
[2021-01-11 15:01] LABS: CT PCR NOT DETECTED (Not Detect.); NG PCR NOT DETECTED (Not Detect.)
== END 2021-01-11 09:16 | disposition home or self-care (01) ==
LOC: HO.LAB 09:15
PROVIDERS: Visit Provider Obstetrics & Gynecology
DX: B37.3 Candidiasis of vulva and vagina (principal); Z20.2 Contact with and (suspected) exposure to infections with a predominantly sexual mode of transmission
CPT/HCPCS: 87491; 87591

== ENCOUNTER 2021-01-13 15:49 | Outpatient (REF) | payer OTHER, SELFPAY ==
[2021-01-13 16:52] LABS: HCG Quantitative 220 mIU/mL
== END 2021-01-13 15:50 | disposition home or self-care (01) ==
LOC: HO.LAB 15:49
PROVIDERS: Visit Provider Obstetrics & Gynecology
DX: O00.102 Left tubal pregnancy without intrauterine pregnancy (principal)
CPT/HCPCS: 36415; 84702

== ENCOUNTER 2021-01-14 08:44 | Outpatient (REF) | payer OTHER, SELFPAY ==
[2021-01-14 10:08] LABS: Hematocrit 42.3 % (37-47); Hemoglobin 13.4 g/dl (12.0-16.0); Mean Corpuscular HGB Conc 31.7 g/dl (31.0-35.0); Mean Corpuscular Volume 88.3 fL (80-98); Mean Platelet Volume 10.4 fL (9.4-12.3); Platelet Count 397 X10*3/uL (160-400); Red Blood Count 4.79 X10*6/uL (4.20-5.50); Red Cell Distribution Width 13.2 % (11.0-16.0); White Blood Count 8.8 X10*3/uL (4.8-10.8)
[2021-01-14 10:23] LABS: Alanine Aminotransferase 52 U/L (0-31); Aspartate Amino Transferase 31 U/L (5-31); Estimated Glomerular Filt Rate > 60
[2021-01-14 10:31] LABS: HCG Quantitative 227 mIU/mL
== END 2021-01-14 08:45 | disposition home or self-care (01) ==
LOC: HO.LAB 08:44
PROVIDERS: Visit Provider Obstetrics & Gynecology
DX: O00.102 Left tubal pregnancy without intrauterine pregnancy (principal)
CPT/HCPCS: 36415; 82565; 84450; 84460; 84702; 85027; 99212

== ENCOUNTER 2021-01-17 15:48 | Outpatient (REF) | payer OTHER, SELFPAY ==
[2021-01-17 16:44] LABS: HCG Quantitative 189 mIU/mL
== END 2021-01-17 15:49 | disposition home or self-care (01) ==
LOC: HO.LAB 15:48
PROVIDERS: Visit Provider Obstetrics & Gynecology
DX: O00.102 Left tubal pregnancy without intrauterine pregnancy (principal); Z3A.00 Weeks of gestation of pregnancy not specified
CPT/HCPCS: 36415; 84702

== ENCOUNTER 2021-01-20 14:52 | Outpatient (REF) | payer OTHER, SELFPAY ==
[2021-01-20 16:29] LABS: HCG Quantitative 135 mIU/mL
== END 2021-01-20 14:53 | disposition home or self-care (01) ==
LOC: HO.LAB 14:52
PROVIDERS: Visit Provider Obstetrics & Gynecology
DX: O00.102 Left tubal pregnancy without intrauterine pregnancy (principal)
CPT/HCPCS: 36415; 84702

== ENCOUNTER 2021-01-27 11:54 | Outpatient (REF) | payer OTHER, SELFPAY ==
[2021-01-27 13:13] LABS: HCG Quantitative 81 mIU/mL
== END 2021-01-27 11:55 | disposition home or self-care (01) ==
LOC: HO.LAB 11:54
PROVIDERS: Visit Provider Obstetrics & Gynecology
DX: O00.102 Left tubal pregnancy without intrauterine pregnancy (principal)
CPT/HCPCS: 36415; 84702

== ENCOUNTER 2021-02-03 06:28 | Outpatient (REF) | payer OTHER, SELFPAY ==
[2021-02-03 08:33] LABS: HCG Quantitative 16 mIU/mL
== END 2021-02-03 06:29 | disposition home or self-care (01) ==
LOC: HO.LAB 06:28
PROVIDERS: Visit Provider Obstetrics & Gynecology
DX: O00.102 Left tubal pregnancy without intrauterine pregnancy (principal)
CPT/HCPCS: 36415; 84702

== ENCOUNTER 2021-02-17 06:31 | Outpatient (REF) | payer OTHER, SELFPAY ==
[2021-02-17 08:45] LABS: HCG Quantitative < 2 mIU/mL
== END 2021-02-17 06:32 | disposition home or self-care (01) ==
LOC: HO.LAB 06:31
PROVIDERS: Visit Provider Obstetrics & Gynecology
DX: O00.102 Left tubal pregnancy without intrauterine pregnancy (principal)
CPT/HCPCS: 36415; 84702

== ENCOUNTER 2021-12-16 09:25 | Outpatient (REF) | payer OTHER, SELFPAY ==
[2021-12-16 12:51] LABS: HCG Quantitative 23075 mIU/mL
== END 2021-12-16 09:26 | disposition home or self-care (01) ==
LOC: HO.LAB 09:25
PROVIDERS: Visit Provider Advanced Practice Midwife
DX: Z34.90 Encounter for supervision of normal pregnancy, unspecified, unspecified trimester (principal); Z67.90 Unspecified blood type, Rh positive
CPT/HCPCS: 36415; 81025; 84702; 99212

== ENCOUNTER 2021-12-18 12:06 | Outpatient (REF) | payer OTHER, SELFPAY ==
[2021-12-18 14:28] LABS: HCG Quantitative 36074 mIU/mL
== END 2021-12-18 12:07 | disposition home or self-care (01) ==
LOC: HO.LAB 12:06
PROVIDERS: Visit Provider Advanced Practice Midwife
DX: Z34.90 Encounter for supervision of normal pregnancy, unspecified, unspecified trimester (principal); Z67.90 Unspecified blood type, Rh positive
CPT/HCPCS: 36415; 84702

== ENCOUNTER 2021-12-19 13:58 | Outpatient (REF) | payer OTHER, SELFPAY ==
--- NOTE | ~2021-12-19 | US_ITS ---
EXAMINATION: OBSTETRICAL ULTRASOUND, FIRST TRIMESTER HISTORY: 31-year-old at the 7.4 weeks of gestation Uncertain dates LMP: 10/27/2021 COMPARISON: None TECHNIQUE: Real time transabdominal imaging with color and M-mode Doppler. FINDINGS: A single, live IUP CRL of 4.4 mm c/w 6.1wks is noted. Heart Rate: 125 beats per minute. Both maternal ovaries are seen and appear normal. GESTATIONAL AGE: 1. GA from LMP: 7.4 wks 2. GA from AUA: 6.1 wks ESTIMATED DATE OF DELIVERY: 1. JAYNE from LMP: 08/03/2022 2. JAYNE from AUA: 08/13/2022 US/US OB <= 14 weeks fetus IMPRESSION: 1. A single live IUP 2. Size less than dates, CRL corresponds to 6.1 weeks of gestation 3. Adjust JAYNE to 08/13/2022 based on today's examination 4. Normal ovaries No specific ultrasound followup appears needed at this time. The patient was advised that ultrasound cannot guarantee the of a normal . Thank you very much for this referral.
== END 2021-12-19 13:59 | disposition home or self-care (01) ==
LOC: HO.US 13:58
PROVIDERS: Visit Provider Advanced Practice Midwife
DX: O34.29 Maternal care due to uterine scar from other previous surgery (principal); Z67.90 Unspecified blood type, Rh positive; Z87.59 Personal history of other complications of pregnancy, childbirth and the puerperium
CPT/HCPCS: 76801

== ENCOUNTER → 2021-12-22 09:06 | Outpatient (BNVA) | payer OTHER, SELFPAY | PROVIDERS: Visit Provider Advanced Practice Midwife ==

== ENCOUNTER → 2024-07-06 11:28 | Outpatient (RCR) | payer OTHER, SELFPAY ==
[2021-01-14 11:55] VITALS: BP 138/77; PULSE 65; RESP 18; TEMP 36.6; O2SAT 100; BMI 39.6
--- NOTE | 2021-01-14 12:10 | MHC.HEMONC ---
Pt here from Dr Cm's office. Labs reviewed and acceptable. Pt given 2nd dose of Methotrexate IM per Dr Cm. She will f/u with him.
== END | disposition home or self-care (01) ==
LOC: HO.ONC 01-14 11:35
PROVIDERS: Visit Provider Obstetrics & Gynecology
DX: O00.90 Unspecified ectopic pregnancy without intrauterine pregnancy (principal)
CPT/HCPCS: 96401; J9250

== ENCOUNTER 2024-12-14 15:32 | Emergency (ER) | payer SELFPAY ==
[2024-12-14 15:56] VITALS: BP 148/101; PULSE 89; RESP 20; TEMP 36.8; O2SAT 100; BMI 33.4
--- NOTE | 2024-12-14 16:00 | ED.GENADULT ---
HPI - General Adult General Chief complaint: Urogenital-Female Stated complaint: sore throat, vaginal pain Time Seen by Provider: 12/14/24 17:28 Source: patient Limitations: no limitations History of Present Illness ED Provider: Loren Cai PA-C HPI narrative: Patient is a 34-year-old female who presents with pharyngitis x1 day. She also has dysuria and concern for STD x 2 days. Denies abdominal pain or new vaginal discharge. No fever. Related Data Previous Rx's ?Medication ?Instructions ?Recorded vitamin with calcium 1 tab PO DAILY #90 tabs 12/22/21 no.72-iron 27 mg-folic acid 1 mg tablet ( Vitamins Plus Low Iron) penicillin V potassium 500 mg 500 mg PO BID #19 tabs 12/14/24 tablet Allergies Allergy/AdvReac Type Severity Reaction Status Date / Time bee pollen [BEE STINGS] Allergy Severe SWELLING Verified 12/14/24 15:58 Review of Systems Review of Systems: Yes all other systems are reviewed and are negative Constitutional: Constitutional: Denies fatigue and Denies fever(s) ENT: Reports sore throat Cardiovascular: Cardiovascular: Denies chest pain Respiratory: Respiratory: Denies cough Gastrointestinal: Gastrointestinal: Denies abdominal pain, Denies nausea and Denies vomiting Genitourinary: Genitourinary: Reports hematuria, Reports dysuria, Denies pelvic pain and Denies vaginal discharge Endocrine: Endocrine: Denies fatigue PMFSH Past Medical History Attestation statement: The following information was validated with the patient. Medical History Ectopic Surgical History History of Social History Social History Alcohol intake: never Advance Directives: No Advance Directives Information Provided: No Do you have a plan to hurt others: No Plan Sexual orientation: Straight/Heterosexual Gender identity: Female Physical Exam ED Vital Signs: Vital Signs - 24 hr 12/14/24 15:56 Temperature 98.3 F Pulse Rate 89 Respiratory Rate 20 Blood Pressure 148/101 H Pulse Oximetry 100 Oxygen Delivery Method Room Air BMI result Body Mass Index 33.4 Const Other: Well in appearance Orientation/consciousness: patient oriented x3 HENGA Other: Opiate erythematous without exudate, uvula midline, no trismus no drooling, no sublingual fluctuance, no swelling inferior to the jawline, Neck Other: Anterior cervical lymphadenopathy noted Resp Effort & Inspection: normal respiratory effort Cardio Other: Normal peripheral perfusion Skin Other: Warm dry no rash Neuro General: patient oriented x3, no focal motor deficits and CN's II-XI intact bilaterally Psych Other: Cooperative Course Course Course Narrative: This is a rapid medical exam performed by Loren Cai PA-C. Patient is a 34-year-old female who presents with pharyngitis x1 day. She also has dysuria and concern for STD. Poor oropharynx is erythematous without exudate. Uvula midline. We will be ordering a strep screen, GC chlamydia and UA. The patient is stable and can return to the waiting room pending her full medical assessment. Medical Decision Making Medical Decision Making [facility] Narrative: Patient is a 34-year-old female who presents with pharyngitis x1 day. She also has dysuria and concern for STD x 2 days. Denies abdominal pain or new vaginal discharge. No fever. No chronic issues History: Per patient I have considered the following differential diagnoses: Strep pharyngitis, gonococcal pharyngitis, RPA, CRYPTOGRAPHIC MACHINE OPERATOR, UTI, STD, Plan: Strep screen, GC chlamydia and urinalysis were obtained from triage. The patient has evidence of a urinary tract infection, she is positive for strep throat, her GC chlamydia are pending. Patient is opting to be empirically treated given her risk factors. In regard to her pharyngitis, she has no concerning exam findings for RPA or CRYPTOGRAPHIC MACHINE OPERATOR. In regard to her risk for STD, she is not having any abdominal pain or vaginal discharge where she would warrant imaging or pelvic exam. She can continue to follow up with her primary care provider. I have independently reviewed the following tests: Labs: Strep positive, UA suspicious for UTI, GC chlamydia pending Lab Data Labs: Lab Results 12/14/24 12/14/24 Range/Units 16:05 16:37 Urine Color Yellow Urine Appearance Clear Urine pH 6.0 (5.0-9.0) Ur Specific [place] 1.010 (1.005-1.025) Urine Protein Trace (Neg-Trace) mg/dL Urine Glucose (UA) Negative (Negative) mg/dL Urine Ketones Negative (Negative) mg/dL Urine Blood Moderate (2+) H (Negative) Urine Nitrite Negative (Negative) Ur Leukocyte Esterase Small (1+) H (Negative) Urine RBC >20 H (0-2) /HPF Urine WBC 11-20 H (0-5) /HPF Ur Squamous Epith Cells 6-10 (0-2) /HPF Urine Bacteria Trace (None Seen) Hyaline Casts 0-2 (0-2) /LPF S. pyogenes GrpA JORGE Positive A (Negative) Discharge Plan Discharge Clinical Impression: Acute streptococcal pharyngitis, Urinary tract infection Patient Disposition: Home, Self-Care Instructions: Urinary Tract Infection in Women (ED), Strep Throat (ED) Additional Instructions: You were found to have a urinary tract infection and you tested positive for strep throat. See home care instructions. Take the penicillin as directed, complete the course of antibiotics. You have testing pending for both gonorrhea and chlamydia, the results should return within 1-2 days. You were treated for both suspect infections today. I would check in with your patient portal to verify results. If you test positive, I would abstain from sexual contact for at least 10 days, I would also inform your partner so they can be treated as well. Prescriptions: New penicillin V potassium 500 mg tablet 500 mg PO BID Qty: 19 0RF No Action Vitamin Plus Low Iron 27 mg iron- 1 mg tablet 1 tab PO DAILY Qty: 90 0RF Interventions: ED Discharge Assessment Last Done: 12/14/24 17:44 Print Language: Gabonese
[2024-12-14 16:17] LABS: IDNOW Serial# 58CA691E; Strep A Nucleic Acid Positive (Negative)
[2024-12-14 16:44] LABS: Appearance Urine Clear; Color Urine Yellow; Glucose Urine UA Negative (Negative); Leukocyte Esterase Urine Small (1+) (Negative); Nitrite Urine Negative (Negative); UMIC TRIGGER UACC YES; Urine Blood Moderate (2+) (Negative); Urine Ketones Negative (Negative); Urine Protein Trace mg/dL (Neg-Trace)
[2024-12-14 16:46] LABS: Bacteria Urine Trace (None Seen); Hyaline Casts Urine 0-2 /LPF (0-2); RBC Urine >20 /HPF (0-2); UACC Culture Trigger YES
--- OUTSIDE RECORDS SUMMARY | 2024-12-14 16:48 | XMS_ITS | Clinical Summary ---
Author Organization [facility] Address [address] [place] [address] Care Team Providers Care Patient Consumer Marketer Name Role Phone Unavailable Primary Care Provider Unavailabl e Social History Tobacco Use Types Packs/Day Years Used Date Smoking Tobacco: Never Assessed Sex and Gender Information Value Date Recorded Sex Assigned at Not on file Gender Identity Not on file Sexual Orientation Not on file Plan of Treatment Health Maintenance Due Date Last Done Comments DTaP,Tdap,and Td Vaccines (1 - Tdap) 2009 Hepatitis B Vaccines (1 of 3 - 19+ 3-dose series) 2009 Cervical Cancer Screening: P ap Smear 2011 COVID-19 Vaccine (2023-2 5 season) 2024 Influenza Vaccine (#1) 2024 HIB Vaccines Aged Out No longer eligi ble based on patient's age to complete this topic HPV Vaccines Aged Out No longer eligi ble based on patient's age to complete this topic Hepatitis A Vaccines Aged Out No long er eligible based on patient's age to complete this topic IPV Vaccines Aged Out No longer eligi ble based on patient's age to complete this topic MMR Vaccines Aged Out No longer eligi ble based on patient's age to complete this topic Meningococcal ACWY Vaccine Aged Out N o longer eligible based on patient's age to complete this topic Pneumococcal Vaccine: Pediat rics (0 to 5 Years) and At-Risk Patients (6 to 64 Years) Aged Out No longer eligible b ased on patient's age to complete this topic RSV Immunization Patients Un sunita 20 months Aged Out No longer eligible b ased on patient's age to complete this topic Varicella Vaccines Aged Out No longer eligible based on patient's age to complete this topic
--- OUTSIDE RECORDS SUMMARY | 2024-12-14 16:48 | XMS_ITS | Clinical Summary ---
Author Organization [facility] Address [address] [place] [address] Care Team Providers Care Typing Section Chief Name Role Phone Alexandrea Nance [facility] Primary Care Provider [phone] Source Comments PLEASE NOTE, if this patient is a minor, it may be UNLAWFUL to discuss sensitive information that is contained in these records (such as FAMILY PLANNING, MENTAL HEALTH or SUBSTANCE ABUSE) with the minor patient's parent or other person without the patient's specific authorization.[facility] Allergies Active Allergy Reactions Criticality Noted Date Comments Bee Sting Swelling High 06/13/2015 Medications EPINEPHrine (EPIPEN) 0.3 mg/0.3 mL (1:1,000) injectionIndicat ions:H/O bee sting allergy Inject 0.3 mL into the muscle as needed for anaphylaxis. 2 Each 0 06/13/20 15 Active miconazole (MICOTIN) 2 % powderIndication s:Tinea pedis of both feet Apply topically as needed for itching. 85 g 1 06/13/20 15 Active Miscellaneous Medical Supply miscIndications: Knee pain, acute, unspecified laterality by miscellaneous route once daily as needed. Right knee brace. Disp #1. Lifetime need. 1 Each 0 06/13/20 15 Active diclofenac sodium (VOLTAREN) 1 % gelIndications:C arpal tunnel syndrome, bilateral Apply topically 2 (two) times daily TO PAINFUL AREAS PRN 200 g 2 03/23/20 22 Active acetaminophen (TYLENOL) 500 mg tabletIndication s:Carpal tunnel syndrome, bilateral Take 1 Tablet by mouth every 6 (six) hours as needed for pain 90 Tablet 1 03/24/20 22 Active PROAIR HFA 90 mcg/actuation inhalerIndicatio ns:SOB (shortness of breath),Wheezing ,Severe persistent asthma with exacerbation INHALE 2 PUFFS INTO THE LUNGS EVERY 4 HOURS NEEDED FOR SHORTNESS OF BREATH OR WHEEZING 8.5 g 2 06/05/20 22 Active Active Problems Problem Noted Date Diagnosed Date Migraine 10/05/2023 Overview (10/05/2023): 12/18/22 Edwin Bobo, [facility]. Migraines well controlled; continue sumatriptan PRN Family history of gestational diabetes mellitus 03/24/2022 Carpal tunnel syndrome, bilateral 03/24/2022 BMI 40.0-44.9, adult ([facility]) 03/24/2022 H/O bee sting allergy 06/13/2015 IUD (intrauterine device) in place 01/10/2015 Mild intermittent asthma 01/04/2015 Immunizations Name Administration Dates Next Due DTAP (DAPTACEL),5 PERTUSSIS ANTIGENS 11/1994,06/08/1992,1990,1989,1990 HEP B, PED/ADOL 07/13/2002,04/11/2002,03/11/2002 HPV, QUADRIVALENT 02/07/2015,11/19/2009,10/17/20 09 Hib (PRP-T) 08/08/1991,1990 INFLUENZA, SEASONAL, INJECTABLE 10/30/1998 MMR (MMR II/Priorix) 06/08/1995,08/08/1991 OPV, Trivalent 06/15/1995, 2,1990,1989 TDAP 01/23/2010 Td(adult),2 Lf tetanus toxoid,preservative free 03/08/2002 Varicella, Live Vaccine 08/04/2011,07/23/2002 Family History Medical History Relation Name Comments Diabetes Maternal Aunt Depression Mother Diabetes Mother Hypertension Mother Nervous System Disorders Mother Par kinson's Hypertension Sister Thyroid Disease Sister Cancer Neg Relation Name Status Comments Father Alive Maternal Aunt Mother Alive Paternal Grandmother Alive Sister Alive Son Alive Social History Tobacco Use Types Packs/Day Years Used Date Smoking Tobacco: Former Cigarettes 0 6 Smokeless Tobacco: Never Tobacco Cessation:Ready to Q uit: No; Counseling Given: No Comments:3 cigarettes a day Alcohol Use Standard Drinks/Week Comments Yes 0 (1 standard drink = 0.6 oz pur e alcohol) Holidays only Social Connections Answer Date Recorded Connectedness 0 07/15/2024 Financial Resource Strain Answer Date R ecorded Financial Resource Strain 0 2021 Stress Answer Date Recorded Stress 0 12/27/2021 Physical Activity Answer Date Recorded Physical Activity 0 12/27/2021 Food Insecurity Answer Date Recorded Food 0 08/03/2024 Transportation Needs Answer Date Record ed Transportation 0 12/27/2021 Housing Stability Answer Date Recorded Housing 0 12/27/2021 Safety and Environment Answer Date Eric rded Safety 0 03/23/2022 Utilities Answer Date Recorded Utilities 0 12/27/2021 Employment Answer Date Recorded Employment 0 12/27/2021 Comments No Sex and Gender Information Value Date Recorded Sex Assigned at Female 12/27/2021 9:29 AM PST Legal Sex Female 6:11 AM PST Gender Identity Female 12/27/2021 9:29 AM PST Sexual Orientation Straight 12/27/2021 9: 29 AM PST Last Filed Vital Signs Vital Sign Reading Time Taken Comments Blood Pressure 142/84 03/23/2022 1:47 PM EDT Pulse 96 03/23/2022 1:47 PM EDT Temperature 36.8 ??C (98.2 ??F) 03/23/2022 1:47 PM ED T Respiratory Rate 16 03/23/2022 1:47 PM EDT Oxygen Saturation 98% 03/23/2022 1:47 PM EDT Inhaled Oxygen Concentration - - Weight 84.8 kg (187 lb) 03/23/2022 1:47 PM EDT Height 139.7 cm (4' 7 ) 03/23/2022 1:47 PM EDT Body Mass Index 43.46 03/23/2022 1:47 PM EDT Plan of Treatment Health Maintenance Due Date Last Done Comments HPV Screening 1990 Hepatitis C Screening 1990 Pap + HPV 1990 Tobacco Screening 1990 Imm-Pneumococcal (1 of 2 - PCV) 2009 Cervical Cancer Screening 2011 Pap Smear 2011 Annual Preventive Care Visit 06/13/2016 06/13/2015, 01/04/2015 Imm-DTaP/Tdap/Td (7 - Td or Tdap) 01/24/2020 01/23/2010, 03/08/2002, 06/08/1995, Additional history exists Hypertension Screening (#1) 03/23/2023 Relationship Safety Screening/Counseling 03/23/2023 03/23/2022 [id number] ( season) 2024 01/29/2022, 04/04/2021, 03/12/2021 Imm-Influenza (#1) 2024 10/30/1998 Alcohol and Drug Screen 11/08/2024 03/23/20, 06/13/2015, 01/04/2015, Additional history exists Depression Annual Screen 11/08/2024 03/23/2022, 12/10 Imm-Hepatitis B Completed 07/13/2002, 02/2002, 03/11/2002 HIV Screening Completed 06/13/2015, 01/04/2015 Cervical Ablation/Cold-Knife Conization Discontinued Cervical Cryotherapy Discontinued Colposcopy Discontinued Endometrial Biopsy Discontinued Excision/Leep Discontinued HPV Genotyping Discontinued Vaginal Pap Discontinued Vulvoscopy Discontinued Procedures Procedure Name Priority Date/Time Associated Diagnosis Comments ANTIBODY HIV-1&HIV-2 SINGLE RESULT Routine 06/13/2015 4:52 PM EDT Screen for STD (sexually transmitted disease) from Last 3 Months or Most Recently Relevant to Health Maintenance Results * HIV-1 & HIV-2 ANTIBODIES (06/13/2015 4:52 PM EDT) HIV 1 AND 2 ANTIBODY SCREEN NEGATIVE NEGATIVE [facility] Blood specimen (specimen) Blood / Unknown 06/13/2015 4:52 PM EDT 06/13/2015 10:42 PM EDT Narrative [facility] - 06/14/2015 8:37 AM EDT [facility] [address] [place] [id number] PT ID [id number] ORD# [id number] us Alexandrea Nance [facility] SPECIALIST [facility] - BLOOD DRAW Final Re sult [facility] [address] [place], [place] [address] [phone] from Last 3 Months or Most Recently Relevant to Health Maintenance [facility] Care Teams Typing Section Chief Relationship Specialty Start Date End Date Alexandrea Nance FNP [address] [place] [phone] PCP - General Family Medicine, LICENSING AND REGISTRATION DIRECTOR 01/04/15
[2024-12-14] MEDS: Azithromycin 500 MG TABLET 1000 MG PO (17:35)
[2024-12-14] MEDS: Penicillin V Potassium 250 MG TABLET 500 MG PO (17:36)
[2024-12-14] MEDS: cefTRIAXone sodium 250 MG, Lidocaine HCl 1 % MPF 0.9 ML IM (17:39)
[2024-12-14 17:44] VITALS: BP 148/101; PULSE 89; RESP 20; TEMP 36.8; O2SAT 100
[2024-12-15 02:00] LABS: CT PCR NOT DETECTED (Not Detect.); NG PCR NOT DETECTED (Not Detect.)
== END 2024-12-14 17:49 | disposition home or self-care (01) ==
PROVIDERS: Physician Assistant Medical; Emergency Provider Emergency Medicine
DX: J02.9 Acute pharyngitis, unspecified (principal); N39.0 Urinary tract infection, site not specified; R10.2 Pelvic and perineal pain; R30.0 Dysuria; Z11.52 Encounter for screening for COVID-19; Z79.899 Other long term (current) drug therapy
CPT/HCPCS: 81001; 87086; 87088; 87186; 87491; 87591; 87651; 96372; 99282; 99284; J0696; J2003